=== PATIENT | female | born 1940 | race Caucasian/White ===

== ENCOUNTER → 2022-06-10 | Day surgery (SDC) | payer MEDICARE, OTHER, SELFPAY ==
[2022-06-10 07:25] LABS: Hematocrit 41.2 % (37-47); Hemoglobin 13.6 g/dL (12.0-15.0); Mean Corpuscular Hgb 30.6 pg (27.0-32.0); Mean Corpuscular Volume 92.6 fL (81-99); Mean Platelet Vol. 10.1 fl (6.2-12.0); Platelet Count 251 K/mm3 (150-450); RBC Distribution Width CV 12.1 % (11.6-14.6); RBC Distribution Width SD 41.7 fl (35.1-43.9); Red Blood Count 4.45 M/mm3 (4.2-5.4); White Blood Count 9.2 K/mm3 (4.4-11.0)
[2022-06-10 07:38] LABS: Anion Gap 5 (5-15); BUN 13 mg/dL (7-18); BUN/Creat Ratio 18.6 RATIO (10-20); Calcium,Total 9.9 mg/dL (8.5-10.1); Chloride 106 mmol/L (98-107); EST Glomerular Filtration Rate 85 mL/min (>60); Est Glom Filt Rate - Afr Amer 103 mL/min (>60); Glucose 156 mg/dL (74-106); Potassium 4.1 mmol/L (3.5-5.1); Sodium Level 141 mmol/L (136-145)
[2022-06-10 07:40] VITALS: BMI 20.6
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
--- NOTE | 2022-06-10 10:05 | OP.PCM_ITS ---
Report of Operation Date of Procedure: 06/10/22 Pre-Operative Diagnosis: Nonhealing ulcer left foot Post-Operative Diagnosis: Left popliteal artery occlusion, diminutive distal left anterior tibial artery Surgery/Procedure Performed:: Abdominal pelvic left lower extremity arteriogram with left popliteal 3 x 40 mm Powerflex angioplasty Description of Surgical Findings:: Timeout informed consent was obtained. 82-year-old female was taken to the special procedures lab placed upon the table. Throughout the procedure and aliquots she received a total of 50 mcg of fentanyl and 2 mg of Versed is intravenous sedation. Bilateral groins were sterilely prepped and draped. Ultrasound was used to identify the right common femoral artery. 2% lidocaine was used as a local anesthetic. Throughout the procedure a total of 10 cc was used. Local was instilled and under ultrasound guidance micropuncture needle inserted into the right common femoral artery followed by micropuncture sheath 035 J-wire and then a 5 [place] Terumo catheter. The artery was noted to be quite fibrous and tough. Was able then to advance and angled 035 Glidewire and a 5 [place] universal flush catheter into the infrarenal abdominal aorta. Using Visipaque contrast at the rate of 15 cc a second for 12 cc of diluted contrast and AP aortogram was obtained. Then used a Glidewire and advanced a flush catheter into the proximal left superficial femoral artery and static views were obtained of the left upper leg and then the catheter was advanced and static views were obtained based upon the knee. Having achieved that I then exchanged out for an 035 Magic wire remove the 5 [place]e sheath and placed a 7 [place]e destination sheath. The patient received 6000 units of heparin. After ACT monitoring she received 1000 cc of heparin later in the procedure. Was able to then through the 7 [place] sheath advanced a 035 angled Glidewire and a 3 5 quick cross catheter but was not able to gain access through the area of occluded popliteal. I then used a stiff Glidewire and still was not able to get through so I then reversed the stiff Glidewire and was able to get through the short area of occlusion. I reversed the Glidewire again getting the floppy and was ab le to advance the quick cross catheter into the infrageniculate popliteal and into the peroneal. Then replaced the Magic wire. I did 2 separate insufflations using a 3 x 40 mm Powerflex balloon. The second installation was up to 18 martha of pressure was held for 3 minutes. Patient has demonstrated wide patency of the previous area of occlusion wide-open flow initially to the trifurcation vessels. Because of its location in the proximal popliteal artery I elected not to perform additional procedures. The vessel is rather diminutive and 3 mm appeared to be approximate the correct size. I did not feel that I would be able to achieve any type of directional atherectomy at this time. She tolerated the procedure well. Equipment was removed. Exchanged out for 7 [place]e short sheath in the right groin. I then placed a 6 7 [place] minx device. There was good control with no lifting. Patient was taken to recovery room in satisfied condition. Strong triphasic left posterior tibial Doppler signal. Images demonstrate a proximal 30% stenosis of bilateral renal arteries proximally. Abdominal aorta bilateral common Extremity action right internal iliac to peroneal artery patent. The left profundofemoral and superficial femoral are patent. There is a 2 cm long area of occlusion of the superior left popliteal with large collateral flow around the knee. Infrageniculate popliteal appears to be patent and the trifurcation vessels are initially patent the left anterior tibial by the ankle becomes extremely diminutive. The left peroneal and left posterior arteries past the ankle and digital vessels are identified. There is a large collateral flow which is proximal to the area of occlusion in the left popliteal. Subsequent to the angioplasty there is resolution of the area of occlusion and the collateral flow is markedly diminished in nature. Total contrast used 60 cc. Impression successful recannulation of inline flow left occluded popliteal artery. Kayden Nath M.D., F.A.C.S. Surgeon: Kayden Nath Type of Anesthesia: IV Sedation and Local
[2022-06-10 10:54] LABS: ACT Activated Clotting Time 127 sec (74-137)
[2022-06-10 10:55] LABS: ACT Activated Clotting Time 225 sec (74-137)
== END | disposition home or self-care (01) ==
PROVIDERS: Referring Provider Surgery; Visit Provider Surgery
DX: E10.621 Type 1 diabetes mellitus with foot ulcer (principal); E10.51 Type 1 diabetes mellitus with diabetic peripheral angiopathy without gangrene; L97.529 Non-pressure chronic ulcer of other part of left foot with unspecified severity; Z79.4 Long term (current) use of insulin; S91.105A Unspecified open wound of left lesser toe(s) without damage to nail, initial encounter; E03.9 Hypothyroidism, unspecified; I25.2 Old myocardial infarction; Z79.82 Long term (current) use of aspirin; Z79.899 Other long term (current) drug therapy; Z95.5 Presence of coronary angioplasty implant and graft; X58.XXXA Exposure to other specified factors, initial encounter
CPT/HCPCS: 36200; 36245; 36415; 37224; 75625; 75710; 76937; 80048; 85027; 85347; 99152; 99153; C1760; J7030; J7040; Q9967; C1725; C1769; C1887; C1894

== ENCOUNTER → 2022-07-22 | Outpatient (CLI) | payer MEDICARE, OTHER, SELFPAY ==
[2022-07-22 16:16] LABS: Vitamin D,25 Hydroxy 38.7 ng/mL
[2022-07-22 16:18] LABS: ALB/GLOB Ratio 0.9 RATIO (0.9-2.4); AST(SGOT) 22 U/L (15-37); Alanine Aminotransfer ALT/SGPT 37 U/L (13-56); Albumin, Serum 3.3 g/dL (3.2-5.0); Alkaline Phosphatase 122 U/L (45-117); Anion Gap 3 (5-15); BUN 18 mg/dL (7-18); BUN/Creat Ratio 21.8 RATIO (10-20); Calcium,Total 9.3 mg/dL (8.5-10.1); Chloride 103 mmol/L (98-107); Cholesterol 154 mg/dL (200); Creatinine, Serum 0.82 mg/dL (0.55-1.02); EST Glomerular Filtration Rate 70 mL/min (>60); Est Glom Filt Rate - Afr Amer 85 mL/min (>60); Globulin 3.5 g/dL (2.2-4.2); Glucose 160 mg/dL (74-106); High Density Lipoprotein 89 mg/dL; Protein, Total 6.8 g/dL (6.4-8.2); Sodium Level 137 mmol/L (136-145); T4 Free Direct 1.11 ng/dL (0.76-1.46); Thyroid Stim Hormone (TSH) 1.64 uIU/mL (0.358-3.74); Triglycerides 113 mg/dL; Very Low Density Lipoprotein 23 mg/dL (5-40)
[2022-07-22 16:23] LABS: Microalbumin,Random Urine 14.9 mg/L (NO RANGE EST.); Microalbumin:Creatinine Ratio 44.1 mg/g CRE (<30 mg/g CRE)
== END | disposition home or self-care (01) ==
LOC: LAB 13:43
PROVIDERS: Visit Provider Nurse Practitioner Family
DX: E11.9 Type 2 diabetes mellitus without complications (principal); E03.9 Hypothyroidism, unspecified; E55.9 Vitamin D deficiency, unspecified
CPT/HCPCS: 36415; 80053; 80061; 82043; 82306; 82570; 84439; 84443

== ENCOUNTER → 2022-07-28 | Outpatient (CLI) | payer MEDICARE, OTHER, SELFPAY ==
--- NOTE | 2022-07-28 13:03 | ART_ITS ---
Reason For Study: LLE Ulcer Procedure A bilateral lower extremity continuous wave Doppler with analog waveform analysis,segmental pressures,and ankle brachial indexes with exercise. Left Segmental Pressures Left brachial= 122mmHg. Left calf = 161mmHg. Left posterior tibial artery = 114mmHg. Left dorsalis pedis artery = 80mmHg. Left digit = 41 mmHg. The left posterior tibial artery waveforms are triphasic. The left dorsalis pedis waveforms are triphasic. Right Segmental Pressures Right brachial= 120mmHg. Right calf = 141mmHg. Right posterior tibial artery = 126mmHg. Right dorsalis pedis artery = 135mmHg. Right digit = 50 mmHg. The right posterior tibial artery waveforms are biphasic. The right dorsalis pedis waveforms are biphasic. Indices The right ankle brachial index by the posterior tibial artery is 1.03. The right ankle brachial index by the dorsalis pedis is 1.11. The right digital-brachial index is 0.41. The right ankle brachial index by the dorsalis pedis post exercise is 1.23. The left ankle brachial index by the posterior tibial artery is 0.93. The left ankle brachial index by the dorsalis pedis is 0.66. The left digital-brachial index is 0.34. The left posterior tibial artery index post exercise is 1.24. VL/Lower Ext Art Exam w/ Exercise Interpretation Summary Right lower extremity demonstrates normal posterior tibial and dorsalis pedis a nkle-brachial indices at rest of 1.03 and 1.11 respectively. Doppler waveforms however are biphasic. There is a normal exercise response however from a resting 1.11 to immediately after exercise at 1.23. Findings of the above information which likely suggest mild occlusive disease. The right digita l brachial index of 0.41 is abnormal. Suggests distal small vessel disease. Left lower extremity posterior tibialis and dorsalis pedis ankle-brachial indic es at rest are abnormal at 0.93 and 0.66 respectively although Doppler waveforms are noted to be triphasic. With exercise the left DESMOND goes from 0.93 to 1.24 immediately after exercise which i s a normal response. The left digital brachial index is 0.34 which is abnormal and consistent with d istal small vessel disease Ordering Physician: Vianca Green Referring Physician: Lisha Casillas Performed By: Luan Matamoros RVT
== END | disposition home or self-care (01) ==
LOC: CVS 12:58
PROVIDERS: Referring Provider Physician Assistant; Visit Provider Physician Assistant
DX: L97.521 Non-pressure chronic ulcer of other part of left foot limited to breakdown of skin (principal)
CPT/HCPCS: 93924

== ENCOUNTER → 2022-08-11 | Outpatient (CLI) | payer MEDICARE, OTHER, SELFPAY ==
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
== END | disposition home or self-care (01) ==
LOC: OPBD 09:27
PROVIDERS: Visit Provider Nurse Practitioner Family
DX: M81.0 Age-related osteoporosis without current pathological fracture (principal)
CPT/HCPCS: 77080